=== PATIENT | female | born 1970 | race Caucasian/White ===

== ENCOUNTER 2021-08-31 18:16 | Emergency (ER) | payer SELFPAY ==
[~2021-08-31] VITALS: Ht 160 cm; Wt 69.0 kg
[2021-08-31 18:22] VITALS: BP 0/0
[2021-08-31] MEDS ORDERED: LIDOCAINE 5% PATCH TOP SCH (18:45)
[2021-08-31] MEDS ORDERED: ACETAMINOPHEN 325MG TABLET PO ONE (18:45)
== END 2021-08-31 20:22 | disposition left against medical advice (07) ==
LOC: ER 18:36
DX: Z53.21 Procedure and treatment not carried out due to patient leaving prior to being seen by health care provider (principal); I10 Essential (primary) hypertension